=== PATIENT | male | born 1950 | race Two or more races ===

== ENCOUNTER 2019-12-18 13:31 | Outpatient (CLI) | payer OTHER | END 2019-12-18 13:43 | disposition home or self-care (01) | LOC: RAD 13:31 | PROVIDERS: ATTEND Physical Medicine & Rehabilitation Hospice and Palliative Medicine | DX: M75.112 Incomplete rotator cuff tear or rupture of left shoulder, not specified as traumatic (principal); M79.642 Pain in left hand ==